=== PATIENT | female | born 1980 | race Caucasian/White ===

== ENCOUNTER 2018-11-03 23:36 | Inpatient (IN) | payer OTHER ==
--- NOTE | 2018-11-04 06:30 | ED ---
Skin Complaint - HPI Summary HPI Summary: Patient is a 38 year old F presenting to [facility] with a chief complaint of left thumb pain rated at 8/10 in severity. Patient reports she was helping her friend by carrying and moving treadmill downstairs when she hurt her thumb. Per triage, patient is a transfer from [place] with left thumb cellulitis with onset 3 days ago. Patient required hand surgeon services, leading to arrival to [facility]. In the room patient denies fevers but in triage, patient reports to have developed fever and chills today. Symptoms aggravated by nothing. Symptoms alleviated by nothing. - History of Current Complaint Chief Complaint: EDRashSkinAbscess Time Seen by Provider: 11/04/18 01:43 Stated Complaint: CELLULITIS PER EMS Hx Obtained From: Patient Hx Last Menstrual Period: 01/15/15 Onset/Duration: Started Days Ago - 3, Still Present Timing: Lasting Days Pain Intensity: 8 Pain Scale Used: 0-10 Numeric Skin Location: Hand - left thumb Aggravating Symptom(s): Nothing Alleviating Symptom(s): Nothing Associated Signs & Symptoms: Fever, Chills - Allergy/Home Medications Allergies/Adverse Reactions: Allergies Allergy/AdvReac Type Severity Reaction Status Date / Time No Known Allergies Allergy Verified 04/23/18 11:02 PMH/Surg Hx/FS Hx/Imm Hx Endocrine/Hematology History: Denies: Hx Diabetes, Hx Thyroid Disease Cardiovascular History: Denies: Hx Hypertension, Hx Pacemaker/ICD Respiratory History: Denies: Hx Asthma, Hx Chronic Obstructive Pulmonary Disease (COPD) GI History: Denies: Hx Ulcer History: Denies: Hx Renal Disease Sensory History: Denies: Hx Hearing Aid Psychiatric History: Denies: Hx Panic Disorder - Cancer History Cancer Type, Location and Year: SKIN MELANOMA - Surgical History Surgery Procedure, Year, and Place: t&a Infectious Disease History: No Infectious Disease History: Denies: Hx Hepatitis, Hx Human Immunodeficiency Virus (HIV), Traveled Outside the [place] in Last 30 Days - Family History Known Family History: Positive: Cardiac Disease - mother had coronary artery bypass graft, Diabetes - Social History Alcohol Use: None Substance Use Type: Reports: None Hx Tobacco Use: Yes Smoking Status (MU): Light Every Day Tobacco Smoker Type: Cigarettes Review of Systems Positive: Fever, Chills Skin: Other - left thumb pain All Other Systems Reviewed And Are Negative: Yes Physical Exam - Summary Physical Exam Summary: VITAL SIGNS: Reviewed. GENERAL: Patient is a well-developed and nourished FEMALE who is lying comfortable in the stretcher. Patient is not in any acute respiratory distress. HEAD AND FACE: No signs of trauma. No ecchymosis, hematomas or skull depressions. No sinus tenderness. EYES: PERRLA, EOMI x 2, No injected conjunctiva, no nystagmus. EARS: Hearing grossly intact. Ear canals and tympanic membranes are within normal limits. MOUTH: Oropharynx within normal limits. NECK: Supple, trachea is midline, no adenopathy, no JVD, no carotid bruit, no c- spine tenderness, neck with full ROM CHEST: Symmetric, no tenderness at palpation LUNGS: Clear to auscultation bilaterally. No wheezing or crackles. CVS: Regular rate and rhythm, S1 and S2 present, no murmurs or gallops appreciated. ABDOMEN: Soft, non-tender. No signs of distention. No rebound no guarding, and no masses palpated. Bowel sounds are normal. EXTREMITIES: Swelling tenderness, redness, distal phalanx of the left thumb NEURO: Alert and oriented x 3. No acute neurological deficits. Speech is normal and follows commands. SKIN: Dry and warm Triage Information Reviewed: Yes Vital Signs On Initial Exam: Initial Vitals Pulse Pulse Ox 64 100 11/03/18 23:51 11/03/18 23:51 Vital Signs Reviewed: Yes Diagnostics - Vital Signs Vital Signs Temp Pulse Resp BP Pulse Ox 11/04/18 01:51 149/74 11/04/18 01:21 83 117/69 98 11/04/18 01:00 83 98 11/04/18 00:51 149/74 11/04/18 00:37 78 99 11/04/18 00:21 84 117/71 99 11/04/18 00:00 81 98 11/03/18 23:52 98.7 F 83 16 122/85 100 11/03/18 23:51 64 100 - Laboratory Lab Statement: Any lab studies that have been ordered have been reviewed, and results considered in the medical decision making process. - Radiology Left Hand X-Ray Radiology Interpretation Completed By: ED Physician Summary of Radiographic Findings: No acute process. Pending offical report. Hand X-Ray Radiology Interpretation Completed By: ED Physician Summary of Radiographic Findings: No acute process. Pending offical report. Course/Dx - Course Course Of Treatment: Patient is a 38 year old F presenting to [facility] with a chief complaint of left thumb pain rated at 8/10 in severity. Patient reports she was helping her friend by carrying and moving treadmill downstairs when she hurt her thumb. Per triage, patient is a transfer from [place] with left thumb cellulitis with onset 3 days ago. Patient required hand surgeon services, leading to arrival to [facility]. In the room patient denies fevers but in triage, patient reports to have developed fever and chills today. Physical exam reveals Swelling tenderness, redness, and distal phalanx of the left thumb. Hand X-Ray shows No acute process. We discussed patient care with Dr. Madden, orthopedics, at 0154 who will come at around 0700 to evaluate patient then. Patient has already received antibiotics in previous hospital. 0640 - Dr. Madden in ED to evaluate patient. Patient is signed out to Dr. Lujan pending Dr. Madden evaluation. - Diagnoses Provider Diagnoses: Felon of finger of left hand - Physician Notifications Discussed Care Of Patient With: William Madden Time Discussed With Above Provider: 01:54 Instructed by Provider To: Other - We discussed patient care with Dr. Madden, orthopedics, at 0154 who will come at around 0700 to evaluate patient then. Patient has already received antibiotics in previous hospital. 0640 - Dr. Madden in ED to evaluate patient. Discharge - Sign-Out/Discharge Documenting (check all that apply): Sign-Out Patient Signing out patient TO: Zander Lujan - Discharge Plan Referrals: Hai Odell MD [Primary Care Provider] - - Attestation Statements Document Initiated by Scribe: Yes Documenting Scribe: Florence Gentile Provider For Whom Vicente is Documenting (Include Credential): Nicky Gifford MD Scribe Attestation: Dhiraj Turpin Alison Kim, scribed for Nicky Gifford MD on 11/04/18 at 0641. Status of Scribe Document: Ready
[2018-11-04] MEDS ORDERED: Bupivacaine 0.5% W/EPI SDV* 30 ML VIAL ONE (06:47)
[2018-11-04] MEDS ORDERED: Lidocaine 1% INJ* 10 MG/ML 30 ML SDV ONE (06:51)
[2018-11-04] MEDS ORDERED: Morphine 4 MG/ML VIAL (1 ml) 4 MG/ML VIAL ONE (07:13)
[2018-11-04] MEDS ORDERED: Morphine 4 MG/ML VIAL (1 ml) 4 MG/ML VIAL IV ONE (07:13)
[2018-11-04] MEDS ORDERED: diPHENhydraMINE IV* 50 MG/ML 1 ml VIAL (BENADRYL) IV PRN (07:28)
[2018-11-04] MEDS ORDERED: Ondansetron INJ* 2 MG/ML VIAL IV PRN (07:28)
--- NOTE | 2018-11-04 07:37 | ED ---
Progress - Progress Note Progress Note: This pt is a sign-out from Dr. Gifford to Dr. Lujan at shift change on 11/04/18 at 07:00 pending orthopedics consult. Course/Dx - Course Course Of Treatment: This pt was signed out by Dr. Gifford pending orthopedics consult. Dr. Madden, orthopedist, came and evaluated the patient in the ED. Dr. Madden will admit the patient to his services. - Diagnoses Provider Diagnoses: Felon of finger of left hand Discharge - Sign-Out/Discharge Documenting (check all that apply): Patient Departure - Admit, Receiving Sign- Out Receiving patient FROM: Nicky Gifford Patient Received Moderate/Deep Sedation with Procedure: No - Discharge Plan Condition: Stable Disposition: ADMITTED TO [facility] Referrals: Hai Odell MD [Primary Care Provider] - - Attestation Statements Document Initiated by Scribe: Yes Documenting Scribe: Sarah Berry Provider For Whom Scribe is Documenting (Include Credential): Zander Lujan MD Scribe Attestation: Sarah Turpin, scribed for Zander Lujan MD on 11/04/18 at 0841. Status of Scribe Document: Ready
[2018-11-04 07:57] LABS: ABS Eosinophils 0.2 10^3/ul (0-0.6); ABS Lymphocytes 1.7 10^3/ul (1.0-4.8); ABS Monocytes 0.5 10^3/ul (0-0.8); ABS Neutrophils 4.7 10^3/ul (1.5-7.7); Eosinophil % 2.7 %; Hematocrit 36 % (35-47); Hemoglobin 12.2 g/dL (12.0-16.0); Lymphocyte % 23.6 %; Mean Corpuscular HGB Conc 34 g/dL (31-36); Mean Corpuscular Hemoglobin 29 pg (27-31); Mean Corpuscular Volume 86 fL (80-97); Mean Platelet Volume 7.8 fL (7.4-10.4); Platelet Count 267 10^3/uL (150-450); Red Blood Count 4.26 10^6 /uL (3.70-4.87); Red Cell Distribution Width 14 % (10-15)
[2018-11-04] MEDS ORDERED: CEFAZOLIN IVPB ONE (08:00)
[2018-11-04] MEDS ORDERED: [UNRECOGNIZED DRUG - OTHER] IVPB ONE (08:00)
[2018-11-04] MEDS ORDERED: ceFAZolin 2 GM PREMIX in ORs 0 GM/0 ML BAG ONE (09:19)
[2018-11-04] MEDS ORDERED: ceFAZolin 1 GM ADVAN(*) 1 GM ADDV.VIAL IVPB ONE (09:21)
[2018-11-04] MEDS: oxyCODONE/Acetamin 5/325 MG* TAB PO PRN ×3 (12:06→21:40)
--- NOTE | 2018-11-04 16:10 | PN ---
Progress Note - Progress Note Date of Service: 11/04/18 SOAP: Subjective: [Pt is s/p left index finger I&D with Dr. Madden. She was seen lying in bed. She stated she was in a lot of pain but appeared to be comfortable and going in and out of sleep as I was trying to talk to her. She denies fevers/chills, CP, SOB, or calf pain. Dressing was left on.] Objective: [GENERAL: A&O x 3. LUE: Dressing intact and was not changed at this time. She is able to move all other fingers. Sensation to light intact. Lower extremities: Calves are soft and non-tender.] Assessment: [S/p left index finger I&D with Dr. Madden.] Plan: [Continue IV antibiotics. Continue current analgesics. ] Vital Signs Temp Pulse Resp BP Pulse Ox 98.2 F 64 16 116/72 99 11/04/18 13:48 11/04/18 13:48 11/04/18 13:48 11/04/18 13:48 11/04/18 13:48 Laboratory Last Values WBC 7.0 10^3/uL (3.5-10.8) 11/04/18 07:41 RBC 4.26 10^6 /uL (3.70-4.87) 11/04/18 07:41 Hgb 12.2 g/dL (12.0-16.0) 11/04/18 07:41 Hct 36 % (35-47) 11/04/18 07:41 MCV 86 fL (80-97) 11/04/18 07:41 MCH 29 pg (27-31) 11/04/18 07:41 MCHC 34 g/dL (31-36) 11/04/18 07:41 RDW 14 % (10-15) 11/04/18 07:41 Plt Count 267 10^3/uL (150-450) 11/04/18 07:41 MPV 7.8 fL (7.4-10.4) 11/04/18 07:41 Neut % (Auto) 66.2 % 11/04/18 07:41 Lymph % (Auto) 23.6 % 11/04/18 07:41 [place] % (Auto) 6.9 % 11/04/18 07:41 Eos % (Auto) 2.7 % 11/04/18 07:41 Baso % (Auto) 0.6 % 11/04/18 07:41 Absolute Neuts (auto) 4.7 10^3/ul (1.5-7.7) 11/04/18 07:41 Absolute Lymphs (auto) 1.7 10^3/ul (1.0-4.8) 11/04/18 07:41 Absolute Monos (auto) 0.5 10^3/ul (0-0.8) 11/04/18 07:41 Absolute Eos (auto) 0.2 10^3/ul (0-0.6) 11/04/18 07:41 Absolute Basos (auto) 0.0 10^3/ul (0-0.2) 11/04/18 07:41 Absolute Nucleated RBC 0.0 10^3/ul 11/04/18 07:41 Nucleated RBC % 0.0 11/04/18 07:41
[2018-11-04] MEDS: NS 0.9% 1000 ML** 1,000 ML IV SCH (16:28)
[2018-11-04] MEDS: ceFAZolin 1 GM ADVAN(*) 1 GM in NS 0.9% 50 ML* 50 ML IVPB SCH ×2 (16:29→23:46)
--- NOTE | 2018-11-05 00:07 | HP ---
HISTORY AND PHYSICAL: DATE OF ADMISSION: 11/04/18 HISTORY OF PRESENT ILLNESS: The patient is a 38-year-old woman, who was transferred to the [facility] Emergency Department from the [facility] Emergency Room with a left thumb infection. The patient states that Thursday or Thursday, which would be 4 to 5 days ago, the patient was helping a friend move a treadmill down a stairs when she sustained some type of crush injury or laceration to the left thumb. The patient had increasing pain, swelling, and erythema about that left thumb. The patient was evaluated by ER staff and Orthopedics at [facility]. They diagnosed the patient with an infection, but preferred the patient to be treated elsewhere, in a facility with orthopedic hand surgical coverage. I spoke to ER staff and orthopedic surgeon at [facility] and accepted the transfer to the emergency room in our hospital with myself as a learning consultant as needed. The patient reported some fevers and chills over the last several days and severe left thumb pain. PAST MEDICAL HISTORY: 1. Degenerative disk disease. 2. Occasional lower extremity lumbar sciatica. 3. Gastroesophageal reflux disease. 4. Prior skin melanoma. PAST SURGICAL HISTORY: Tonsillectomy and adenoidectomy. MEDICATIONS: 1. Gabapentin. 2. Multivitamin. 3. Some medication for gastroesophageal reflux disease. ALLERGIES: No known drug allergies. FAMILY HISTORY: Noncontributory, however, a history of cardiac disease and diabetes. SOCIAL HISTORY: The patient denied IV drug use. The patient has multiple teenage children. The patient admitted to tobacco use with emergency room staff , light everyday use but she denied drinking or drugs to ER staff as well. REVIEW OF SYSTEMS: The patient has had fevers and chills and left thumb pain, but otherwise no chest pain, heart palpitations, shortness of breath, abdominal pain, nausea, vomiting, or diarrhea. The patient does have some chronic mild lower back pain. No current sciatica. PHYSICAL EXAMINATION GENERAL: In no acute distress, alert and oriented, appropriate mood and affect , appropriate dressing and hygiene. Although the patient appeared to have multiple lesions about her face, asked her about these and she said she did not know what they were. The patient seemed to be much into hiding underneath the blankets to avoid the bright lights at the emergency room. VITAL SIGNS: A full set of vitals obtained at 11:52 p.m. last night, body temperature 98.7 degrees Fahrenheit, heart rate 80, blood pressure 122/85, respirations 16, oxygen saturation 99% on room air. EXTREMITIES: Left hand exam reveals no lymphangitic streaking proximal to the thumb. No pain with passive range of motion left elbow, forearm, and wrist. The patient has a significant amount of soft tissue swelling about the pulp of the thumb tip down to the level of the IP joint of the thumb. The patient had some erythema and minimal swelling on the dorsal side about the nail beds. The patient was unable to significantly flex or extend the IP joint, which is something that she could do by report, at [facility]. Skin under pressure about the pulp. Area of small laceration, perhaps 3 or 4 mm long, towards the distal end of the thumb on its radial side. IMAGING: X-ray views obtained of the hand demonstrate no fracture. No thumb degenerative changes, no erosion to bone consistent with osteomyelitis about the thumb, distal or proximal phalanx. ASSESSMENT: Left thumb infection, olimpia, possible paronychia. PLAN/RECOMMENDATIONS: 1. Explained the problem to the patient and she was interested in incision and drainage. We thought it would be more expeditious to do this in the emergency room. 2. PROCEDURE PERFORMED IN THE EMERGENCY DEPARTMENT: Incision, irrigation, drainage of left thumb felon single-pulp infection. A written consent. Formal time-out performed. Sterile technique, well tolerated. I first placed 10 cc of a mixture of lidocaine and Marcaine, digital nerve blocks and flexor tendon sheath nicole and dorsal cutaneous. I returned 5 to 10 minutes later. The patient is still having some ulnar-sided pain, so I injected some more of the anesthetic into the ulnar nerve digital bundle. The patient was quite emotional during the injection of anesthetic, but as it started to work, became much calmer. We also provided her some morphine IV. I made a longitudinal incision in the volar aspect of the thumb overlying the distal phalanx. I biased it slightly radial to incorporate the prior laceration. There was pus. I milked the pus out of the wound. I provided irrigation, 33 cc normal saline. I explored with dissecting scissors in every direction and felt no other pocket of pus. I packed the wound with 0.25 inch iodoform gauze packing. I also just to ensure, confirm that there is no dorsal-sided infection such as a paronychia I lifted up the proximal nail fold off of the nail plate and there was no pus or fluid on that portion present. I placed dressing over the packing volarly. I covered in [place]. 3. Given the patient's infection, quite severe in pain and swelling and erythema and tenderness, and it having been neglected for multiple days, I decided to admit the patient for IV antibiotics. 4. The patient was admitted to my service. I started the patient on Ancef 1 g IV q.8 hours. I will obtain an Infectious Disease consult with Dr. Greer. 5. I requested that the [facility] update this patient's tetanus status. We can enquire and confirm that this was done with the patient. 6. I will keep the patient as an inpatient for several days, until the patient' s wound appearance improves significantly at which point we will discharge her home on oral antibiotics and have her followup in clinic. The patient's packing will be removed 1 cm per day. [id number]/[facility] #: [id number] MTDD
[2018-11-05] MEDS: NS 0.9% 1000 ML** 1,000 ML IV SCH (03:04)
[2018-11-05] MEDS: oxyCODONE/Acetamin 5/325 MG* TAB PO PRN ×5 (03:48→20:56)
[2018-11-05] MEDS: ceFAZolin 1 GM ADVAN(*) 1 GM in NS 0.9% 50 ML* 50 ML IVPB SCH ×2 (08:21→16:39)
[2018-11-05 11:26] LABS: HIV 4th Generation Negative (Negative)
--- NOTE | 2018-11-05 11:28 | CONS ---
CC: Dr. Madden * CONSULTATION REPORT: DATE OF CONSULT: 11/05/18 REQUESTING PROVIDER: Dr. Madden. CONSULTING SERVICE: Infectious disease. REASON FOR CONSULTATION: Left thumb abscess. IMPRESSION: 1. Left thumb abscess, which was drained by Dr. Madden. She had been on Keflex leading up to the procedure for a few days. She had not had systemic symptoms at home. Today, what had been erythema up her wrist and inability to move her thumb are both resolved. She has a surgical incision which is clean and has been on Ancef. Resistant staph is a consideration. 2. Degenerative disk disease. 3. History of melanoma. RECOMMENDATION: We will continue Ancef 1 g IV every 8 hours as she is receiving. I will add oral doxycycline to cover methicillin resistant staph as there is not culture material. We will add hep C and HIV antibody. HISTORY OF PRESENT ILLNESS: This is a 38-year-old woman who had a few days of left hand swelling to the point that she could not move it, was seen at [place] [facility], and prescribed Keflex. She had blood cultures taken at that time. I talked to the micro lab there. There is no growth on those cultures and they do not have any thumb or wound cultures. She returned to the hospital there on 11/03/18. They took more blood cultures. They also are negative at this point. Because of worsening of her symptoms, she is transferred here and Dr. Madden saw her and did incision and debridement which she tolerated well. She is having thumb pain, but the swelling, redness, and loss of range of motion are much improved today. She has had no fever since she has been here. Has not had a MRSA infection in the past. PAST MEDICAL HISTORY: 1. Degenerative disk disease. 2. Gastroesophageal reflux disease. 3. Melanoma. 4. Sciatica. 5. Status post tonsillectomy, adenoidectomy. MEDICATIONS: 1. Cefazolin 1 g IV every 8 hours. 2. Tylenol as needed. 3. Naproxen as needed. 4. Percocet. ALLERGIES: No known drug allergies. FAMILY HISTORY: No recurrent infections. SOCIAL HISTORY: She lives in [place]. She is a nonsmoker. No injection drugs. REVIEW OF SYSTEMS: A 12-point review was negative, except as noted above in the history of present illness. PHYSICAL EXAM: Vital Signs: Temperature is 37, heart rate 64, respiratory rate 20, blood pressure 140/90, oxygen saturation 99% on room air. In general, she is awake, not in distress. Neurologic: She is oriented x3. Follows all commands. HEENT: There is no conjunctival hemorrhage. Oropharynx without lesions. Neck: Neck is supple without mass. Heart is regular rate and rhythm without murmurs, rubs, or gallops. Lungs are clear to auscultation bilaterally. Abdomen: Soft, nontender, and nondistended. There are bowel sounds present. Skin: There is no rash or splinter hemorrhages. Musculoskeletal: Left thumb, there is diffuse mild edema with decreased flexion. There is an open incision with some wound packing and no surrounding erythema there. There is tenderness through the thumb. No crepitus or flexion. LABORATORY DATA: White blood cell count 7, hemoglobin 12, platelets 267. Please see impressions and recommendations outlined above. Thank you for asking me to see Ms. Solis in consultation. [id number]/[facility] [place] [place] #: [id number] [facility] CENTERAlma
[2018-11-05] MEDS: DOXYcycline CAP(*) 100 MG PO SCH ×2 (11:54→20:56)
[2018-11-05] MEDS: Morphine INJ* 2 MG/ML 1 ML SYRINGE (TWO MG - NEW SYRINGE VERSION) IV PRN ×5 (11:54→22:18)
[2018-11-05 11:57] LABS: Hepatitis C Antibody Negative (Negative)
--- NOTE | 2018-11-05 17:18 | PN ---
Progress Note - Progress Note Date of Service: 11/05/18 SOAP: Subjective: Pain decreased. Seen by ID today that recommended PO Clinda + Ancef IV. By report per ID and patient, decreased swelling & erythema. Objective: L thumb - Dressing intact - Tolerates limited PROM IP joint without pain. As was the case in ED, pain- free AROM is much improved compared with prior to I&D. Selected Entries 11/05/18 11/05/18 11/05/18 00:57 03:56 07:15 Temperature 97.9 F 98.0 F 98 F Pulse Rate Respiratory Rate Blood Pressure (mmHg) O2 Sat by Pulse Oximetry 11/05/18 11:15 Temperature 98.4 F Pulse Rate 69 Respiratory 22 Rate Blood Pressure 120/74 (mmHg) O2 Sat by Pulse 100 Oximetry Laboratory Tests 11/04/18 07:41 WBC 7.0 Neut % (Auto) 66.2 Assessment: POD 1 I&D L thumb felon infection in the Emergency Room Plan: - Continue Ancef/Doxy - I will do wound check in the morning. - IV antibiotics and inpatient until wound improves significantly.
[2018-11-05] MEDS: Naproxen TAB* 250 MG PO PRN (22:22)
[2018-11-06] MEDS: ceFAZolin 1 GM ADVAN(*) 1 GM in NS 0.9% 50 ML* 50 ML IVPB SCH ×4 (00:09→23:34)
[2018-11-06] MEDS: NS 0.9% 1000 ML** 1,000 ML IV SCH (00:09)
[2018-11-06] MEDS: Morphine INJ* 2 MG/ML 1 ML SYRINGE (TWO MG - NEW SYRINGE VERSION) IV PRN ×9 (01:30→22:27)
[2018-11-06] MEDS: Acetaminophen TAB* 325 MG PO PRN ×2 (06:25→19:59)
[2018-11-06] MEDS: DOXYcycline CAP(*) 100 MG PO SCH ×2 (07:41→21:11)
[2018-11-06] MEDS: oxyCODONE/Acetamin 5/325 MG* TAB PO PRN ×4 (07:41→21:13)
--- NOTE | 2018-11-06 07:48 | PN ---
Progress Note - Progress Note Date of Service: 11/06/18 SOAP: Subjective: Still has pain. Objective: Sleeping comfortably in bed. Patient becomes very nervous and agitated with physical exam, looking at her thumb, etc. L thumb - Still soft tissue swelling overlying distal phalanx - Erythema dorsally about the skin folds - General TTP about distal phalanx - Can actively flex the IP joint 0-30 degrees without significant discomfort - Small amount of purulence on packing Selected Entries 11/06/18 03:12 Temperature 97.2 F Pulse Rate 81 Respiratory 20 Rate Blood Pressure 168/79 (mmHg) O2 Sat by Pulse 100 Oximetry Assessment: POD 2 (in ED) I&D left thumb felon infection Plan: - Continue Ancef and Doxy per ID - Needs more days on IV antibiotics - I pulled back packing. No more purulence in wound noted. - Given the purulence on packing, I will start the patient on twice daily soaks in warm, soapy water. Packing can fall out during the soaks.
[2018-11-06] MEDS: Naproxen TAB* 250 MG PO PRN ×2 (09:29→21:15)
[2018-11-06] MEDS ORDERED: Polyethylene Glycol 3350* 17 GM PACKET PO PRN (16:54)
[2018-11-06] MEDS ORDERED: Senna TAB PO PRN (16:54)
[2018-11-06] MEDS: Docusate CAP* 100 MG PO PRN (17:25)
[2018-11-07] MEDS: Morphine INJ* 2 MG/ML 1 ML SYRINGE (TWO MG - NEW SYRINGE VERSION) IV PRN ×10 (00:31→23:15)
[2018-11-07] MEDS: DOXYcycline CAP(*) 100 MG PO SCH ×2 (08:51→20:33)
[2018-11-07] MEDS: ceFAZolin 1 GM ADVAN(*) 1 GM in NS 0.9% 50 ML* 50 ML IVPB SCH ×3 (08:51→23:16)
[2018-11-07] MEDS: oxyCODONE/Acetamin 5/325 MG* TAB PO PRN (08:51)
[2018-11-07] MEDS: Naproxen TAB* 250 MG PO PRN (12:35)
[2018-11-07] MEDS: Docusate CAP* 100 MG PO PRN (12:36)
--- NOTE | 2018-11-07 12:41 | PN ---
Progress Note - Progress Note Date of Service: 11/07/18 SOAP: Subjective: [Patient seen OOB, currently soaking finger in soapy water. Having moderate to severe thumb pain requiring morphine and Percocet. Objective: [] Vital Signs Temp 96.7 F 11/07/18 11:22 Pulse 76 11/07/18 11:22 Resp 16 11/07/18 11:31 BP 128/81 11/07/18 11:22 Pulse Ox 100 11/07/18 11:22 Intake & Output 11/06/18 11/07/18 11/07/18 18:59 06:59 18:59 Intake Total 3880 74 295 Balance 3880 74 295 Intake: IV Fluids 1395 15 NS (0.9%) 1395 15 IVPB 65 59 55 NS (0.9%) 65 59 Oral 2420 0 240 Other: # Bowel Movements 0 # Voids 1 Left thumb with some ecchymosis pad of thumb, no erythema, mild maceration at distal aspect of wound, small amount of wet necrotic tissue in wound, no pus expressed. still moving IP joint well Assessment: []s/p I&D left thumb infection Plan: []Pain management- Naproxen may be more helpful continue soapy soaks and dressing changes as ordered continue IV Kefzol and po Doxy Plan on discharge home 11/08 with oral Doxycycline and Keflex as recommended by Dr. Greer.
[2018-11-08] MEDS: Morphine INJ* 2 MG/ML 1 ML SYRINGE (TWO MG - NEW SYRINGE VERSION) IV PRN ×5 (01:15→13:19)
[2018-11-08] MEDS: oxyCODONE/Acetamin 5/325 MG* TAB PO PRN (06:29)
[2018-11-08 06:54] LABS: ABS Basophils 0.1 10^3/ul (0-0.2); ABS Eosinophils 0.2 10^3/ul (0-0.6); ABS Lymphocytes 2.2 10^3/ul (1.0-4.8); ABS Monocytes 0.4 10^3/ul (0-0.8); ABS Neutrophils 3.3 10^3/ul (1.5-7.7); Eosinophil % 3.1 %; Hematocrit 40 % (35-47); Hemoglobin 13.7 g/dL (12.0-16.0); Mean Corpuscular HGB Conc 34 g/dL (31-36); Mean Corpuscular Hemoglobin 29 pg (27-31); Mean Corpuscular Volume 85 fL (80-97); Mean Platelet Volume 7.8 fL (7.4-10.4); Platelet Count 326 10^3/uL (150-450); Red Blood Count 4.77 10^6 /uL (3.70-4.87); Red Cell Distribution Width 14 % (10-15); White Blood Count 6.2 10^3/uL (3.5-10.8)
[2018-11-08] MEDS: ceFAZolin 1 GM ADVAN(*) 1 GM in NS 0.9% 50 ML* 50 ML IVPB SCH (08:08)
[2018-11-08] MEDS: DOXYcycline CAP(*) 100 MG PO SCH (08:08)
[2018-11-08 09:32] LABS: Erythrocyte Sed Rate 10 mm/Hr (0-19)
[2018-11-08 09:57] VITALS: BP 130/87
--- NOTE | 2018-11-08 10:08 | PN ---
Progress Note - Progress Note Date of Service: 11/08/18 SOAP: Subjective: CC: thumb infection HPI: 38 year old woman with left thumb abscess s/p I&D. Swelling and redness much better, still painful. No fever, rash, or diarrhea. Objective: Vital Signs Temp 36.6 C 11/08/18 07:15 Pulse 79 11/08/18 07:15 Resp 18 11/08/18 09:55 BP 130/87 11/08/18 07:15 Pulse Ox 100 11/08/18 07:15 Intake & Output 11/07/18 11/08/18 11/08/18 18:59 06:59 18:59 Intake Total 1965 600 Balance 1965 600 Intake: IV Fluids 20 120 ABX - CEFAZOLIN 60 NS (0.9%) 20 IVPB 165 ABX - CEFAZOLIN 110 Oral 1780 480 Other: # Voids 1 Gen:awake, no distress HEENT: no thrush Heart:RRR no murmur Lungs:CTA BL Abd:+BS NTND soft Skin: no rash MSK: Left distal thumb incision, MCP ROM improved, no erythema, mild edema Laboratory Results - last 24 hr 11/08/18 11/08/18 06:24 06:24 WBC 6.2 RBC 4.77 Hgb 13.7 Hct 40 MCV 85 MCH 29 MCHC 34 RDW 14 Plt Count 326 MPV 7.8 Neut % (Auto) 53.6 Lymph % (Auto) 35.0 [place] % (Auto) 6.6 Eos % (Auto) 3.1 Baso % (Auto) 1.7 Absolute Neuts (auto) 3.3 Absolute Lymphs (auto) 2.2 Absolute Monos (auto) 0.4 Absolute Eos (auto) 0.2 Absolute Basos (auto) 0.1 Absolute Nucleated RBC 0.0 Nucleated RBC % 0.0 ESR 10 C-Reactive Protein 3.59 Assessment: 1. left thumb abscess s/p I&D Plan: 1. doxycycline 100 mg twice daily and keflex 500 mg by mouth three times daily for 10 more days
--- NOTE | 2018-11-08 12:41 | PN ---
Progress Note - Progress Note Date of Service: 11/08/18 SOAP: Subjective: Pt seen at bedside. Complains of minimal pain. Denies CP, SOB, F/C. Vital Signs: Temp Pulse Resp BP Pulse Ox 98 F 79 16 130/87 100 11/08/18 07:15 11/08/18 07:15 11/08/18 11:54 11/08/18 07:15 11/08/18 07:15 Laboratory Last Values WBC 6.2 10^3/uL (3.5-10.8) 11/08/18 06:24 RBC 4.77 10^6 /uL (3.70-4.87) 11/08/18 06:24 Hgb 13.7 g/dL (12.0-16.0) 11/08/18 06:24 Hct 40 % (35-47) 11/08/18 06:24 MCV 85 fL (80-97) 11/08/18 06:24 MCH 29 pg (27-31) 11/08/18 06:24 MCHC 34 g/dL (31-36) 11/08/18 06:24 RDW 14 % (10-15) 11/08/18 06:24 Plt Count 326 10^3/uL (150-450) 11/08/18 06:24 MPV 7.8 fL (7.4-10.4) 11/08/18 06:24 Neut % (Auto) 53.6 % 11/08/18 06:24 Lymph % (Auto) 35.0 % 11/08/18 06:24 [place] % (Auto) 6.6 % 11/08/18 06:24 Eos % (Auto) 3.1 % 11/08/18 06:24 Baso % (Auto) 1.7 % 11/08/18 06:24 Absolute Neuts (auto) 3.3 10^3/ul (1.5-7.7) 11/08/18 06:24 Absolute Lymphs (auto) 2.2 10^3/ul (1.0-4.8) 11/08/18 06:24 Absolute Monos (auto) 0.4 10^3/ul (0-0.8) 11/08/18 06:24 Absolute Eos (auto) 0.2 10^3/ul (0-0.6) 11/08/18 06:24 Absolute Basos (auto) 0.1 10^3/ul (0-0.2) 11/08/18 06:24 Absolute Nucleated RBC 0.0 10^3/ul 11/08/18 06:24 Nucleated RBC % 0.0 11/08/18 06:24 ESR 10 mm/Hr (0-19) 11/08/18 06:24 C-Reactive Protein 3.59 mg/L (<8.01) 11/08/18 06:24 Hepatitis C Antibody Negative (Negative) 11/05/18 10:08 Hepatitis C Ab Index 0.07 s/c 11/05/18 10:08 HIV 1&2 Ab/P24 Ag 4thGn Negative (Negative) 11/05/18 10:08 Objective: A&O x3, NAD, Dressing C/D/I, No erythema, Moves fingers well. NVI distally. Assessment: s/p I&D left thumb infection Plan: Oral Doxycyclin and Keflex per ID Pain control Continue soapy soaks and dressing changes D/C to home today
== END 2018-11-08 13:45 | disposition home or self-care (01) | DRG 383 ==
LOC: ED 23:36 → OBSVTOIN 11-04 07:28 → INTOOBSV 11-04 07:28 → MED 11-04 07:28 → OBSVTOIN 11-06 13:59 → MED 11-08 11:14
PROVIDERS: ADMIT Orthopaedic Surgery; ATTEND Orthopaedic Surgery
PROC: 0H9GXZZ Drainage of Left Hand Skin, External Approach (ICD-10-PCS; principal; 2018-11-04)
DX: L02.512 Cutaneous abscess of left hand (principal); S61.012A Laceration without foreign body of left thumb without damage to nail, initial encounter; B96.89 Other specified bacterial agents as the cause of diseases classified elsewhere; W23.0XXA Caught, crushed, jammed, or pinched between moving objects, initial encounter; M51.36 Other intervertebral disc degeneration, lumbar region; K21.9 Gastro-esophageal reflux disease without esophagitis; M54.30 Sciatica, unspecified side; F17.210 Nicotine dependence, cigarettes, uncomplicated; Y92.9 Unspecified place or not applicable; Z85.820 Personal history of malignant melanoma of skin; Z79.899 Other long term (current) drug therapy; Z83.3 Family history of diabetes mellitus; Z82.49 Family history of ischemic heart disease and other diseases of the circulatory system
CPT/HCPCS: 36415; 85025; 85652; 86140; 86803; 87389; 99285; A9270-GY; G0378; J0690; J2270